=== PATIENT | male | born 1980 | race Caucasian/White ===

== ENCOUNTER 2022-07-26 02:19 | Emergency (ER) | payer OTHER ==
[2022-07-26 02:51] VITALS: BP 133/81; PULSE 93; RESP 18; TEMP 98.2; BMI 32.9
== END 2022-07-26 05:53 | disposition home or self-care (01) ==
LOC: JER 02:19
DX: J06.9 Acute upper respiratory infection, unspecified (principal)
CPT/HCPCS: 0241U-QW; 87651; 99281-25